=== PATIENT | male | born 1960 | race Caucasian/White ===

== ENCOUNTER → 2016-10-07 | Outpatient (CLI) | payer BC | LOC: RAD 14:22 | DX: R07.81 Pleurodynia (principal) ==

== ENCOUNTER → 2020-10-31 | Day surgery (SDC) | payer BC | LOC: MSO 11:35 | DX: H26.8 Other specified cataract (principal) | CPT/HCPCS: 00142; J0171; J2250; V2632 ==

== ENCOUNTER → 2023-04-06 | Day surgery (SDC) | payer BC | END | disposition home or self-care (01) | LOC: MSO 09:26 | DX: K22.2 Esophageal obstruction (principal); K21.9 Gastro-esophageal reflux disease without esophagitis; Z79.899 Other long term (current) drug therapy | CPT/HCPCS: 00731; C1769; J2704; J7120 ==

== ENCOUNTER → 2023-10-29 | Day surgery (SDC) | payer OTHER ==
[~2023-10-29] MED LIST: Lidocaine PF 2% (20 MG/ML) 5 ML VIAL ONE; fentaNYL 100 MCG/2 ML VIAL ONE
== END | disposition home or self-care (01) ==
LOC: MSO 08:47
DX: K21.9 Gastro-esophageal reflux disease without esophagitis (principal); K22.2 Esophageal obstruction; K63.5 Polyp of colon; K92.1 Melena; K57.30 Diverticulosis of large intestine without perforation or abscess without bleeding; Z79.899 Other long term (current) drug therapy
CPT/HCPCS: 00813; C1769; J2704; J3010; J7120